=== PATIENT | male | born 1965 | race African-American/Black ===

== ENCOUNTER 2018-01-04 08:03 | Inpatient (IN) ==
[2018-01-04] MEDS ORDERED: DILTIAZEM 50 MG/10 ML VIAL IV STA (08:32)
[2018-01-04] MEDS ORDERED: DILTIAZEM 100 MG VIAL.ADD IV ONE (08:38)
[2018-01-04] MEDS: DILTIAZEM INJ 100 MG in SODIUM CHLORIDE 0.9% 100 ML IV SCH (08:52)
[2018-01-04 09:01] LABS: Basophils % 0.2 % (0.0-0.8); Hematocrit 31.2 VOL% (42.0-52.0); Hemoglobin 10.3 GM/DL (14.0-18.0); Immature Granulocytes % 0.8 %; Immature Granulocytes Absolute 0.08 #; Lymphocytes # 0.3 10*3/uL (1.4-4.0); Lymphocytes % 3.2 % (21.2-54.2); Mean Corpuscular Hemoglobin 33 PG (27-34); Mean Corpuscular Volume 101.3 FL (87-102); Mean Platelet Volume 11.4 FL (9.6-12.0); Monocytes # 0.5 10*3/uL (0.11-0.8); Monocytes % 4.8 % (1.7-12.7); Neutrophils # 9.4 10*3/uL (1.4-7.4); Red Blood Count 3.08 MC/CUMM (3.8-5.5); White Blood Count 10.4 T/CUMM (4-12)
[2018-01-04 09:06] LABS: Platelet Count 85 T/CUMM (130-400)
[2018-01-04 09:09] LABS: INR 1.2; PT Patient Result 12.3 SECS; Partial Thromboplastin Time 32.4 SECS (0-40)
[2018-01-04 09:25] LABS: Band Neutrophils 2 % (0-10); Hypochromasia 1+; Lymphocytes 7 % (20-55); Macrocytosis 1+; Metamyelocytes 1 %; Segmented Neutrophils 83 % (50-85); Total Cells Counted 100
[2018-01-04] MEDS ORDERED: SODIUM CHLORIDE 0.9% 1,000 ML IV SCH ×2 (09:30→15:00)
[2018-01-04 09:33] LABS: Albumin 2.9 G/DL (3.4-5.0); Bilirubin,Total 1.2 MG/DL (0.2-1.0); Calcium 8.7 MG/DL (8.5-10.1); Osmolality,Calculated 278.1 MOS/KG (273-304); Potassium 3.5 MMOL/L (3.5-5.1); Thyroid Stimulating Hormone 1.69 uIU/ml (0.358-3.74); Total Protein 8.1 G/DL (6.4-8.3)
[2018-01-04 09:34] LABS: Troponin I Only 0.309 NG/ML (0.00-0.045)
[2018-01-04] MEDS ORDERED: SODIUM CHLORIDE 0.9% 500 ML IV SCH (10:28)
[2018-01-04] MEDS ORDERED: ONDANSETRON 4 MG/2 ML VIAL IV PRN (11:19)
[2018-01-04] MEDS ORDERED: GLUCAGON 1 MG VIAL IM PRN (11:19)
[2018-01-04] MEDS ORDERED: SODIUM CHLORIDE 0.9% 1,000 ML IV ONE (11:24)
[2018-01-04] MEDS ORDERED: ENOXAPARIN 100 MG/ML SYRINGE SUBCUT SCH (14:39)
[2018-01-04] MEDS: INSULIN LISPRO 100 UNIT/ML SUBCUT SCH ×3 (14:51→21:04)
[2018-01-04] MEDS ORDERED: SODIUM CHLORIDE 0.9% 500 ML IV ONE (14:58)
[2018-01-04] MEDS: SODIUM CHLORIDE 0.9% 1,000 ML IV SCH ×2 (15:04→15:53)
[2018-01-04] MEDS: PANTOPRAZOLE 40 MG TABLET PO SCH (15:04)
[2018-01-04] MEDS: ENOXAPARIN 100 MG/ML SYRINGE SUBCUT SCH (15:52)
[2018-01-04] MEDS: METOPROLOL SUCCINATE XL 25 MG TABLET PO SCH (16:40)
[2018-01-04] MEDS: ACETAMINOPHEN 325 MG TABLET PO PRN (21:05)
[2018-01-04] MEDS: PHENYLEPHRINE INJ 80 MG in SODIUM CHLORIDE 0.9% 242 ML IV SCH (22:48)
[2018-01-04] MEDS: MORPHINE 2 MG/1 ML SYRINGE IV PRN (23:59)
[2018-01-05 05:02] LABS: Basophils % 0.2 % (0.0-0.8); Eosinophils # 0.1 10*3/uL (0.0-0.87); Eosinophils % 0.6 % (0.00-10.9); Hematocrit 31.9 VOL% (42.0-52.0); Hemoglobin 10.2 GM/DL (14.0-18.0); Immature Granulocytes % 1.3 %; Immature Granulocytes Absolute 0.12 #; Lymphocytes # 0.2 10*3/uL (1.4-4.0); Lymphocytes % 2.5 % (21.2-54.2); Mean Corpuscular Hemoglobin 33 PG (27-34); Mean Corpuscular Volume 103.9 FL (87-102); Mean Platelet Volume 11.8 FL (9.6-12.0); Monocytes # 0.3 10*3/uL (0.11-0.8); Monocytes % 3.1 % (1.7-12.7); Neutrophils # 8.5 10*3/uL (1.4-7.4); Neutrophils % 92.3 % (38.7-73.9); Platelet Count 74 T/CUMM (130-400); Red Blood Count 3.07 MC/CUMM (3.8-5.5); Red Cell Distribution Width 18.1 % (9.3-17.3); White Blood Count 9.3 T/CUMM (4-12)
[2018-01-05] MEDS: SODIUM CHLORIDE 0.9% 1,000 ML IV SCH (05:25)
[2018-01-05 05:34] LABS: Calcium 7.8 MG/DL (8.5-10.1); Osmolality,Calculated 287.7 MOS/KG (273-304); Potassium 3.8 MMOL/L (3.5-5.1); Risk Ratio 7.25; VLDL CHOLESTEROL 32.4 MG/DL
[2018-01-05 05:35] LABS: Band Neutrophils 6 % (0-10); Eosinophils 1 % (0-10); Lymphocytes 7 % (20-55); Macrocytosis 3+; Platelet Estimate Decreased; Segmented Neutrophils 79 % (50-85); Total Cells Counted 100
[2018-01-05] MEDS: INSULIN LISPRO 100 UNIT/ML SUBCUT SCH ×4 (07:15→21:37)
[2018-01-05] MEDS: ACETAMINOPHEN 325 MG TABLET PO PRN ×3 (07:28→23:39)
[2018-01-05] MEDS ORDERED: ASPIRIN EC 81 MG TABLET PO SCH (09:00)
[2018-01-05] MEDS ORDERED: AMIODARONE INJ 450 MG in DEXTROSE 5% 241 ML IV SCH (09:30)
[2018-01-05] MEDS ORDERED: DIGOXIN 0.5 MG/2 ML AMP IV ONE (09:59)
[2018-01-05] MEDS: METOPROLOL SUCCINATE XL 25 MG TABLET PO SCH (10:00)
[2018-01-05] MEDS: PANTOPRAZOLE 40 MG TABLET PO SCH (10:00)
[2018-01-05] MEDS ORDERED: VANCOMYCIN INJ 1,000 MG in SODIUM CHLORIDE 0.9% 250 ML IV ONE (10:00)
[2018-01-05] MEDS: DILTIAZEM INJ 100 MG in SODIUM CHLORIDE 0.9% 100 ML IV SCH (10:09)
[2018-01-05] MEDS: PHENYLEPHRINE INJ 80 MG in SODIUM CHLORIDE 0.9% 242 ML IV SCH ×2 (13:05→18:00)
[2018-01-05] MEDS: ENOXAPARIN 100 MG/ML SYRINGE SUBCUT SCH (13:58)
[2018-01-05] MEDS: AMIODARONE INJ 450 MG in DEXTROSE 5% 241 ML IV SCH (16:07)
[2018-01-05] MEDS ORDERED: VANCOMYCIN INJ 750 MG in SODIUM CHLORIDE 0.9% 250 ML IV PRN (16:12)
[2018-01-05] MEDS ORDERED: VANCOMYCIN INJ 1,750 MG in SODIUM CHLORIDE 0.9% 500 ML IV ONE (17:30)
[2018-01-05] MEDS ORDERED: ALBUMIN 25% 25 GM in PREMIX 1 EACH IV ONE (17:30)
[2018-01-05] MEDS: PHENYLEPHRINE INJ 160 MG in SODIUM CHLORIDE 0.9% 234 ML IV SCH (21:32)
[2018-01-06] MEDS: PHENYLEPHRINE INJ 160 MG in SODIUM CHLORIDE 0.9% 234 ML IV SCH ×3 (04:17→18:40)
[2018-01-06 05:45] LABS: Calcium 7.9 MG/DL (8.5-10.1); Osmolality,Calculated 277.2 MOS/KG (273-304); Potassium 4.7 MMOL/L (3.5-5.1)
[2018-01-06 05:50] LABS: Basophils # 0.1 10*3/uL (0.0-0.2); Basophils % 0.5 % (0.0-0.8); Eosinophils # 0.1 10*3/uL (0.0-0.87); Eosinophils % 1.1 % (0.00-10.9); Hematocrit 30.4 VOL% (42.0-52.0); Hemoglobin 10.1 GM/DL (14.0-18.0); Immature Granulocytes % 1.3 %; Immature Granulocytes Absolute 0.16 #; Lymphocytes # 0.4 10*3/uL (1.4-4.0); Lymphocytes % 3.2 % (21.2-54.2); Mean Corpuscular HGB Conc 33.2 GM/DL (32-36); Mean Corpuscular Hemoglobin 34 PG (27-34); Mean Platelet Volume 13.2 FL (9.6-12.0); Monocytes # 0.7 10*3/uL (0.11-0.8); Monocytes % 5.4 % (1.7-12.7); NRBC # 0.09 10*3/uL; Neutrophils # 10.9 10*3/uL (1.4-7.4); Neutrophils % 88.5 % (38.7-73.9); Platelet Count 90 T/CUMM (130-400); Red Blood Count 3.01 MC/CUMM (3.8-5.5); Red Cell Distribution Width 18.2 % (9.3-17.3); White Blood Count 12.3 T/CUMM (4-12)
[2018-01-06] MEDS: AMIODARONE INJ 450 MG in DEXTROSE 5% 241 ML IV SCH ×2 (06:22→21:11)
[2018-01-06 06:27] LABS: Band Neutrophils 2 % (0-10); Lymphocytes 5 % (20-55); Platelet Estimate Decreased; Segmented Neutrophils 89 % (50-85); Total Cells Counted 100
[2018-01-06] MEDS: PANTOPRAZOLE 40 MG TABLET PO SCH (08:50)
[2018-01-06] MEDS: DILTIAZEM INJ 100 MG in SODIUM CHLORIDE 0.9% 100 ML IV SCH (08:50)
[2018-01-06] MEDS: INSULIN LISPRO 100 UNIT/ML SUBCUT SCH ×4 (08:50→21:05)
[2018-01-06] MEDS: METOPROLOL SUCCINATE XL 25 MG TABLET PO SCH ×3 (08:53→21:05)
[2018-01-06] MEDS ORDERED: METOPROLOL SUCCINATE XL 25 MG TABLET PO SCH (10:00)
[2018-01-06] MEDS: ENOXAPARIN 100 MG/ML SYRINGE SUBCUT SCH (12:32)
[2018-01-06] MEDS: NOREPINEPHRINE 16 MG in SODIUM CHLORIDE 0.9% 234 ML IV SCH ×2 (18:42→19:17)
[2018-01-07] MEDS: PHENYLEPHRINE INJ 160 MG in SODIUM CHLORIDE 0.9% 234 ML IV SCH ×3 (02:35→20:35)
[2018-01-07 05:48] LABS: Basophils % 0.2 % (0.0-0.8); Eosinophils % 0.3 % (0.00-10.9); Hematocrit 33.1 VOL% (42.0-52.0); Hemoglobin 10.2 GM/DL (14.0-18.0); Immature Granulocytes % 3.9 %; Immature Granulocytes Absolute 0.47 #; Lymphocytes % 8.2 % (21.2-54.2); Mean Corpuscular HGB Conc 30.8 GM/DL (32-36); Mean Corpuscular Hemoglobin 33 PG (27-34); Mean Corpuscular Volume 106.1 FL (87-102); Mean Platelet Volume 13.1 FL (9.6-12.0); Monocytes # 1.1 10*3/uL (0.11-0.8); Monocytes % 8.6 % (1.7-12.7); Neutrophils # 9.6 10*3/uL (1.4-7.4); Neutrophils % 78.8 % (38.7-73.9); Platelet Count 69 T/CUMM (130-400); Red Blood Count 3.12 MC/CUMM (3.8-5.5); Red Cell Distribution Width 18.6 % (9.3-17.3); White Blood Count 12.2 T/CUMM (4-12)
[2018-01-07 06:16] LABS: Anisocytosis 1+; Band Neutrophils 4 % (0-10); Burr Cells Few; Lymphocytes 11 % (20-55); Macrocytosis 3+; Segmented Neutrophils 79 % (50-85); Total Cells Counted 100
[2018-01-07 06:17] LABS: Platelet Estimate Decreased
[2018-01-07 08:26] LABS: Calcium 8.8 MG/DL (8.5-10.1)
[2018-01-07 08:28] LABS: Osmolality,Calculated 284.4 MOS/KG (273-304); Potassium 4.9 MMOL/L (3.5-5.1)
[2018-01-07] MEDS: DEXTROSE 50% 25 GM/50 ML VIAL IV PRN ×4 (08:30→20:50)
[2018-01-07] MEDS: INSULIN LISPRO 100 UNIT/ML SUBCUT SCH ×4 (10:53→21:58)
[2018-01-07] MEDS: DILTIAZEM INJ 100 MG in SODIUM CHLORIDE 0.9% 100 ML IV SCH (11:36)
[2018-01-07] MEDS: PANTOPRAZOLE 40 MG TABLET PO SCH (11:36)
[2018-01-07] MEDS: METOPROLOL SUCCINATE XL 25 MG TABLET PO SCH ×2 (11:36→20:24)
[2018-01-07] MEDS: AMIODARONE INJ 450 MG in DEXTROSE 5% 241 ML IV SCH (14:00)
[2018-01-07] MEDS: ENOXAPARIN 100 MG/ML SYRINGE SUBCUT SCH (14:01)
[2018-01-07] MEDS: DEXTROSE 5% 500 ML IV SCH (16:30)
[2018-01-07] MEDS: NOREPINEPHRINE 16 MG in SODIUM CHLORIDE 0.9% 234 ML IV SCH (17:47)
[2018-01-07] MEDS: MORPHINE 2 MG/1 ML SYRINGE IV PRN (20:24)
[2018-01-07 22:05] LABS: ABG Base Excess -12.6 MMOL/L (-2.5-2.5); ABG HCO3 14.5 MMOL/L (20-26); ABG Oxygen Saturation 91.7 % (95-100); ABG PO2 76.4 MM HG (80-95); ABG TCO2 12.5 MMOL/L (23-27)
[2018-01-07] MEDS: LINEZOLID INJ 600 MG in PREMIX 1 EACH IV SCH (22:59)
[2018-01-08] MEDS ORDERED: ZIPRASIDONE 20 MG/1 ML VIAL IM ONE (05:00)
[2018-01-08] MEDS: AMIODARONE INJ 450 MG in DEXTROSE 5% 241 ML IV SCH ×2 (06:09→21:55)
[2018-01-08 06:44] LABS: Basophils % 0.2 % (0.0-0.8); Eosinophils % 0.2 % (0.00-10.9); Hematocrit 27.4 VOL% (42.0-52.0); Hemoglobin 8.9 GM/DL (14.0-18.0); Immature Granulocytes % 1.8 %; Lymphocytes # 0.8 10*3/uL (1.4-4.0); Lymphocytes % 6.8 % (21.2-54.2); Mean Corpuscular HGB Conc 32.5 GM/DL (32-36); Mean Corpuscular Hemoglobin 33 PG (27-34); Mean Corpuscular Volume 101.5 FL (87-102); Mean Platelet Volume 14.1 FL (9.6-12.0); Monocytes # 0.8 10*3/uL (0.11-0.8); Monocytes % 7.4 % (1.7-12.7); NRBC # 0.04 10*3/uL; Neutrophils # 9.3 10*3/uL (1.4-7.4); Neutrophils % 83.6 % (38.7-73.9); Platelet Count 49 T/CUMM (130-400); Red Cell Distribution Width 18.3 % (9.3-17.3); White Blood Count 11.1 T/CUMM (4-12)
[2018-01-08] MEDS: DEXTROSE 5% 500 ML IV SCH (06:55)
[2018-01-08 07:08] LABS: Band Neutrophils 5 % (0-10); Hypochromasia 1+; Lymphocytes 12 % (20-55); Segmented Neutrophils 79 % (50-85); Total Cells Counted 100
[2018-01-08 07:09] LABS: Macrocytosis 2+; Platelet Estimate Decreased
[2018-01-08 07:18] LABS: Calcium 8.2 MG/DL (8.5-10.1); Osmolality,Calculated 282.5 MOS/KG (273-304); Potassium 5.4 MMOL/L (3.5-5.1)
[2018-01-08] MEDS: INSULIN LISPRO 100 UNIT/ML SUBCUT SCH ×4 (08:38→19:48)
[2018-01-08] MEDS: DILTIAZEM INJ 100 MG in SODIUM CHLORIDE 0.9% 100 ML IV SCH (08:39)
[2018-01-08] MEDS: PANTOPRAZOLE 40 MG TABLET PO SCH (09:29)
[2018-01-08] MEDS: METOPROLOL SUCCINATE XL 25 MG TABLET PO SCH (09:36)
[2018-01-08] MEDS: DEXTROSE 10% 500 ML IV SCH (11:30)
[2018-01-08] MEDS ORDERED: LIDOCAINE 1%/EPI INJ 20 ML VIAL ONE (14:06)
[2018-01-08] MEDS ORDERED: TISSUE ADHESIVE 1 EACH APPLICATOR TOP ONE (14:06)
[2018-01-08] MEDS ORDERED: HEPARIN 5,000 UNIT/1 ML VIAL ONE (14:06)
[2018-01-08] MEDS ORDERED: BUPIVACAINE 0.25% 50 ML VIAL ONE (14:07)
[2018-01-08] MEDS ORDERED: PROPOFOL 200 MG/20 ML VIAL IV ONE (15:49)
[2018-01-08] MEDS ORDERED: SODIUM CHLORIDE 0.9% 1,000 ML IV ONE (15:50)
[2018-01-08] MEDS ORDERED: ETOMIDATE 40 MG/20 ML VIAL IV ONE (15:50)
[2018-01-08] MEDS ORDERED: KETAMINE 500 MG/10 ML VIAL ONE (15:50)
[2018-01-08] MEDS ORDERED: PHENYLEPHRINE 1 MG/10 ML SYRINGE IV ONE (16:53)
[2018-01-08] MEDS ORDERED: ALBUTEROL INHALER 8 GM INH ONE (16:55)
[2018-01-08] MEDS: NOREPINEPHRINE 16 MG in SODIUM CHLORIDE 0.9% 234 ML IV SCH ×2 (17:21→23:16)
[2018-01-08] MEDS ORDERED: VECURONIUM 10 MG VIAL IV ONE ×2 (19:30→20:01)
[2018-01-08] MEDS ORDERED: ETOMIDATE 20 MG/10 ML VIAL IV ONE ×2 (19:31→19:59)
[2018-01-08] MEDS ORDERED: PROPOFOL 1,000 MG/100 ML BOTTLE IV ONE (19:45)
[2018-01-08] MEDS: LINEZOLID INJ 600 MG in PREMIX 1 EACH IV SCH (19:47)
[2018-01-08] MEDS ORDERED: ALBUTEROL/IPRATROPIUM 3 ML NEB RESP TX PRN (19:59)
[2018-01-08] MEDS ORDERED: fentaNYL 100 MCG/2 ML VIAL IV PRN (19:59)
[2018-01-08] MEDS: PROPOFOL 1,000 MG/100 ML BOTTLE IV SCH (20:00)
[2018-01-08 20:37] LABS: ABG Base Excess -9.5 MMOL/L (-2.5-2.5); ABG HCO3 16.8 MMOL/L (20-26); ABG Oxygen Saturation 99.2 % (95-100); ABG PCO2 53.7 MM HG (35-48); ABG TCO2 18.2 MMOL/L (23-27)
[2018-01-08 20:39] LABS: ABG PH 7.166 (7.35-7.45)
[2018-01-08] MEDS ORDERED: SODIUM BICARBONATE 50 MEQ/50 ML SYRINGE IV ONE (20:45)
[2018-01-08 21:00] LABS: Basophils % 0.3 % (0.0-0.8); Eosinophils # 0.1 10*3/uL (0.0-0.87); Eosinophils % 0.4 % (0.00-10.9); Hematocrit 31.4 VOL% (42.0-52.0); Hemoglobin 10.4 GM/DL (14.0-18.0); Immature Granulocytes % 1.9 %; Immature Granulocytes Absolute 0.23 #; Mean Corpuscular HGB Conc 33.1 GM/DL (32-36); Mean Corpuscular Hemoglobin 33 PG (27-34); Mean Platelet Volume 13.8 FL (9.6-12.0); Monocytes # 0.5 10*3/uL (0.11-0.8); Monocytes % 4.2 % (1.7-12.7); NRBC # 0.02 10*3/uL; Neutrophils # 10.3 10*3/uL (1.4-7.4); Neutrophils % 85.2 % (38.7-73.9); Platelet Count 57 T/CUMM (130-400); Red Blood Count 3.14 MC/CUMM (3.8-5.5); Red Cell Distribution Width 17.9 % (9.3-17.3)
[2018-01-08] MEDS: HYDROCORTISONE 100 MG VIAL IV SCH (21:18)
[2018-01-08 21:20] LABS: Lactic Acid 3.5 MMOL/L (0.4-2.0)
[2018-01-08 21:30] LABS: Alanine Aminotransferase 2182 U/L (16-61); Albumin 2.6 G/DL (3.4-5.0); Alkaline Phosphatase 162 U/L (45-117); Aspartate Amino Transferase 4923 U/L (0-37); Blood Urea Nitrogen 95 MG/DL (7-18); Calcium 8.4 MG/DL (8.5-10.1); Glucose 98 MG/DL (74-106); Osmolality,Calculated 285.1 MOS/KG (273-304); Potassium 4.8 MMOL/L (3.5-5.1); Sodium 128 MMOL/L (136-145); Total Protein 6.7 G/DL (6.4-8.3)
[2018-01-08] MEDS: PHENYLEPHRINE INJ 160 MG in SODIUM CHLORIDE 0.9% 234 ML IV SCH (21:55)
[2018-01-08 22:26] LABS: Band Neutrophils 12 % (0-10); Burr Cells Few; Eosinophils 2 % (0-10); Lymphocytes 24 % (20-55); Macrocytosis 3+; Platelet Estimate Decreased; Segmented Neutrophils 60 % (50-85); Total Cells Counted 100
[2018-01-08] MEDS: SODIUM BICARB INJ 50 MEQ in SODIUM CHLORIDE 0.45% 1,000 ML IV SCH (22:26)
[2018-01-09] MEDS: ALBUTEROL/IPRATROPIUM 3 ML NEB RESP TX SCH ×4 (00:16→19:49)
[2018-01-09] MEDS: INSULIN LISPRO 100 UNIT/ML SUBCUT SCH ×4 (00:21→17:14)
[2018-01-09] MEDS: HYDROCORTISONE 100 MG VIAL IV SCH ×4 (03:03→21:26)
[2018-01-09 04:30] LABS: ABG Base Excess -9.2 MMOL/L (-2.5-2.5); ABG HCO3 17.1 MMOL/L (20-26); ABG Oxygen Saturation 96.4 % (95-100); ABG PCO2 50.1 MM HG (35-48); ABG TCO2 17.8 MMOL/L (23-27)
[2018-01-09 04:32] LABS: Basophils # 0.1 10*3/uL (0.0-0.2); Basophils % 0.4 % (0.0-0.8); Hematocrit 33.1 VOL% (42.0-52.0); Hemoglobin 10.9 GM/DL (14.0-18.0); Immature Granulocytes % 2.4 %; Immature Granulocytes Absolute 0.43 #; Lymphocytes # 0.6 10*3/uL (1.4-4.0); Lymphocytes % 3.2 % (21.2-54.2); Mean Corpuscular HGB Conc 32.9 GM/DL (32-36); Mean Corpuscular Hemoglobin 33 PG (27-34); Mean Corpuscular Volume 99.1 FL (87-102); Mean Platelet Volume 13.6 FL (9.6-12.0); Monocytes # 0.6 10*3/uL (0.11-0.8); Monocytes % 3.2 % (1.7-12.7); NRBC # 0.04 10*3/uL; Neutrophils % 90.8 % (38.7-73.9); Platelet Count 71 T/CUMM (130-400); Red Blood Count 3.34 MC/CUMM (3.8-5.5); Red Cell Distribution Width 18.3 % (9.3-17.3); White Blood Count 17.6 T/CUMM (4-12)
[2018-01-09 04:40] LABS: ABG PH 7.192 (7.35-7.45)
[2018-01-09] MEDS ORDERED: SODIUM BICARBONATE 50 MEQ/50 ML SYRINGE IV ONE ×2 (04:47→04:50)
[2018-01-09] MEDS: DEXTROSE 10% 500 ML IV SCH ×2 (04:53→21:35)
[2018-01-09 05:02] LABS: Calcium 8.2 MG/DL (8.5-10.1); Osmolality,Calculated 289.1 MOS/KG (273-304); Potassium 5.1 MMOL/L (3.5-5.1)
[2018-01-09 05:05] LABS: Band Neutrophils 4 % (0-10); Burr Cells Slight; Giant Platelets Few; Hypochromasia 1+; Lymphocytes 2 % (20-55); Ovalocytes Slight; Platelet Estimate Decreased; Segmented Neutrophils 89 % (50-85); Total Cells Counted 100
[2018-01-09 05:06] LABS: Macrocytosis Slight
[2018-01-09 05:17] LABS: Prealbumin 6.6 MG/DL (20-40)
[2018-01-09] MEDS: PHENYLEPHRINE INJ 160 MG in SODIUM CHLORIDE 0.9% 234 ML IV SCH ×3 (05:44→21:20)
[2018-01-09] MEDS ORDERED: SODIUM CHLORIDE 0.9% 500 ML IV ONE (08:01)
[2018-01-09] MEDS: VASOPRESSIN 100 UNITS in SODIUM CHLORIDE 0.9% 95 ML IV SCH (09:14)
[2018-01-09] MEDS: LANSOPRAZOLE ODT 30 MG TABLET NG SCH (09:31)
[2018-01-09] MEDS: PROPOFOL 1,000 MG/100 ML BOTTLE IV SCH ×3 (09:43→23:12)
[2018-01-09] MEDS: SODIUM BICARB INJ 50 MEQ in SODIUM CHLORIDE 0.45% 1,000 ML IV SCH (12:27)
[2018-01-09] MEDS ORDERED: HEPARIN 10,000 UNIT/10 ML VIAL IV PRN (12:30)
[2018-01-09] MEDS: AMIODARONE INJ 450 MG in DEXTROSE 5% 241 ML IV SCH (13:48)
[2018-01-09] MEDS ORDERED: VANCOMYCIN INJ 750 MG in SODIUM CHLORIDE 0.9% 250 ML IV ONE (14:00)
[2018-01-09] MEDS: PANTOPRAZOLE 40 MG TABLET PO SCH (14:39)
[2018-01-09] MEDS ORDERED: HEPARIN LOCK FLUSH 500 UNIT/5 ML SYRINGE IV ONE (15:03)
[2018-01-09] MEDS: NOREPINEPHRINE 16 MG in SODIUM CHLORIDE 0.9% 234 ML IV SCH ×2 (15:17→18:22)
[2018-01-10] MEDS: PHENYLEPHRINE INJ 160 MG in SODIUM CHLORIDE 0.9% 234 ML IV SCH ×3 (00:43→21:57)
[2018-01-10] MEDS: INSULIN LISPRO 100 UNIT/ML SUBCUT SCH ×4 (01:07→18:38)
[2018-01-10] MEDS: ALBUTEROL/IPRATROPIUM 3 ML NEB RESP TX SCH ×4 (01:11→21:13)
[2018-01-10] MEDS: HYDROCORTISONE 100 MG VIAL IV SCH ×4 (02:33→20:51)
[2018-01-10 04:01] LABS: ABG Base Excess -5.9 MMOL/L (-2.5-2.5); ABG HCO3 19.6 MMOL/L (20-26); ABG PCO2 54.1 MM HG (35-48); ABG PH 7.223 (7.35-7.45); ABG TCO2 20.6 MMOL/L (23-27)
[2018-01-10 04:15] LABS: Basophils # 0.1 10*3/uL (0.0-0.2); Basophils % 0.5 % (0.0-0.8); Hematocrit 30.9 VOL% (42.0-52.0); Hemoglobin 10.8 GM/DL (14.0-18.0); Immature Granulocytes % 3.7 %; Immature Granulocytes Absolute 0.65 #; Lymphocytes # 0.7 10*3/uL (1.4-4.0); Lymphocytes % 4.1 % (21.2-54.2); Mean Corpuscular Hemoglobin 33 PG (27-34); Mean Corpuscular Volume 94.2 FL (87-102); Mean Platelet Volume 13.2 FL (9.6-12.0); Monocytes # 0.8 10*3/uL (0.11-0.8); Monocytes % 4.4 % (1.7-12.7); NRBC # 0.16 10*3/uL; Neutrophils # 15.2 10*3/uL (1.4-7.4); Neutrophils % 87.3 % (38.7-73.9); Platelet Count 84 T/CUMM (130-400); Red Blood Count 3.28 MC/CUMM (3.8-5.5); Red Cell Distribution Width 18.3 % (9.3-17.3); White Blood Count 17.4 T/CUMM (4-12)
[2018-01-10 04:30] LABS: Calcium 7.9 MG/DL (8.5-10.1); Osmolality,Calculated 289.9 MOS/KG (273-304); Potassium 5.1 MMOL/L (3.5-5.1)
[2018-01-10 04:58] LABS: Band Neutrophils 2 % (0-10); Lymphocytes 6 % (20-55); Segmented Neutrophils 88 % (50-85); Total Cells Counted 100
[2018-01-10 04:59] LABS: Platelet Estimate Decreased; Polychromasia Few; Target Cells Few; Tear Drop Cells Slight
[2018-01-10 05:00] LABS: Burr Cells Slight
[2018-01-10] MEDS: NOREPINEPHRINE 16 MG in SODIUM CHLORIDE 0.9% 234 ML IV SCH ×3 (05:23→18:13)
[2018-01-10] MEDS: SODIUM BICARB INJ 50 MEQ in SODIUM CHLORIDE 0.45% 1,000 ML IV SCH (05:23)
[2018-01-10] MEDS: VASOPRESSIN 100 UNITS in SODIUM CHLORIDE 0.9% 95 ML IV SCH (05:23)
[2018-01-10] MEDS: PROPOFOL 1,000 MG/100 ML BOTTLE IV SCH ×5 (05:24→23:52)
[2018-01-10] MEDS: AMIODARONE INJ 450 MG in DEXTROSE 5% 241 ML IV SCH (05:24)
[2018-01-10 09:15] LABS: Albumin 2.4 G/DL (3.4-5.0); Bilirubin,Direct 2.53 MG/DL (0.0-0.20); Bilirubin,Total 3.5 MG/DL (0.2-1.0); Total Protein 6.8 G/DL (6.4-8.3)
[2018-01-10] MEDS: SODIUM BICARB INJ 150 MEQ in DEXTROSE 5% 850 ML IV SCH (11:46)
[2018-01-10] MEDS: LANSOPRAZOLE ODT 30 MG TABLET NG SCH (12:01)
[2018-01-10] MEDS: PANTOPRAZOLE 40 MG VIAL IV SCH (14:30)
[2018-01-10] MEDS: SODIUM HYPOCHLORITE 0.25% IRRIG 473 ML BOTTLE TOP SCH (14:37)
[2018-01-10] MEDS: AMINO ACIDS IV SCH (16:56)
[2018-01-10] MEDS: LYTE IV SCH (16:56)
[2018-01-10] MEDS: MULTIVITAMIN IV SCH (16:56)
[2018-01-10] MEDS: DEXT IV SCH (16:56)
[2018-01-10] MEDS ORDERED: DEXTROSE 10% 1,000 ML IV PRN (17:00)
[2018-01-11] MEDS ORDERED: AMIODARONE INJ 150 MG in DEXTROSE 5% 100 ML IV ONE (00:54)
[2018-01-11] MEDS: ALBUTEROL/IPRATROPIUM 3 ML NEB RESP TX SCH ×5 (01:00→19:45)
[2018-01-11] MEDS: PHENYLEPHRINE INJ 160 MG in SODIUM CHLORIDE 0.9% 234 ML IV SCH ×2 (01:16→09:02)
[2018-01-11 01:22] LABS: Basophils # 0.1 10*3/uL (0.0-0.2); Basophils % 0.4 % (0.0-0.8); Hematocrit 28.9 VOL% (42.0-52.0); Immature Granulocytes % 5.4 %; Lymphocytes # 1.1 10*3/uL (1.4-4.0); Lymphocytes % 5.7 % (21.2-54.2); Mean Corpuscular HGB Conc 34.6 GM/DL (32-36); Mean Corpuscular Hemoglobin 33 PG (27-34); Mean Corpuscular Volume 94.1 FL (87-102); Mean Platelet Volume 11.9 FL (9.6-12.0); Monocytes # 0.8 10*3/uL (0.11-0.8); Monocytes % 4.4 % (1.7-12.7); NRBC # 0.41 10*3/uL; Neutrophils # 15.5 10*3/uL (1.4-7.4); Neutrophils % 84.1 % (38.7-73.9); Platelet Count 102 T/CUMM (130-400); Red Blood Count 3.07 MC/CUMM (3.8-5.5); Red Cell Distribution Width 18.2 % (9.3-17.3); White Blood Count 18.4 T/CUMM (4-12)
[2018-01-11 01:23] LABS: ABG Base Excess -4.9 MMOL/L (-2.5-2.5); ABG HCO3 20.2 MMOL/L (20-26); ABG Oxygen Saturation 91.3 % (95-100); ABG PCO2 48.7 MM HG (35-48); ABG PH 7.266 (7.35-7.45); ABG PO2 69.7 MM HG (80-95); ABG TCO2 20.6 MMOL/L (23-27)
[2018-01-11 01:55] LABS: Alanine Aminotransferase 1093 U/L (16-61); Albumin 2.1 G/DL (3.4-5.0); Alkaline Phosphatase 160 U/L (45-117); Aspartate Amino Transferase 662 U/L (0-37); Blood Urea Nitrogen 107 MG/DL (7-18); Calcium 8.9 MG/DL (8.5-10.1); Glucose 174 MG/DL (74-106); Osmolality,Calculated 297.8 MOS/KG (273-304); Potassium 4.9 MMOL/L (3.5-5.1); Sodium 130 MMOL/L (136-145); Total Protein 6.5 G/DL (6.4-8.3); Troponin I Only 0.032 NG/ML (0.00-0.045)
[2018-01-11] MEDS: INSULIN LISPRO 100 UNIT/ML SUBCUT SCH ×4 (01:56→18:37)
[2018-01-11 01:59] LABS: Lactic Acid 2.2 MMOL/L (0.4-2.0)
[2018-01-11 02:05] LABS: Atypical Lymphocytes Few; Band Neutrophils 6 % (0-10); Lymphocytes 9 % (20-55); Macrocytosis 2+; Nucleated Red Blood Cells 3 (0-5); Platelet Estimate Decreased; Segmented Neutrophils 79 % (50-85); Total Cells Counted 100
[2018-01-11] MEDS: AMIODARONE INJ 450 MG in DEXTROSE 5% 241 ML IV SCH ×2 (02:15→18:31)
[2018-01-11] MEDS: HYDROCORTISONE 100 MG VIAL IV SCH ×4 (02:48→21:56)
[2018-01-11] MEDS: NOREPINEPHRINE 16 MG in SODIUM CHLORIDE 0.9% 234 ML IV SCH ×3 (05:10→18:38)
[2018-01-11 05:25] LABS: ABG Base Excess -3.2 MMOL/L (-2.5-2.5); ABG Oxygen Saturation 99.5 % (95-100); ABG PCO2 53.6 MM HG (35-48); ABG PH 7.269 (7.35-7.45); ABG PO2 375.8 MM HG (80-95); ABG TCO2 25.7 MMOL/L (23-27)
[2018-01-11] MEDS: VASOPRESSIN 100 UNITS in SODIUM CHLORIDE 0.9% 95 ML IV SCH (05:26)
[2018-01-11] MEDS: SODIUM BICARB INJ 150 MEQ in DEXTROSE 5% 850 ML IV SCH ×2 (06:07→09:02)
[2018-01-11 06:53] LABS: Calcium 8.1 MG/DL (8.5-10.1); Osmolality,Calculated 298.9 MOS/KG (273-304); Potassium 4.8 MMOL/L (3.5-5.1)
[2018-01-11 06:58] LABS: Basophils # 0.1 10*3/uL (0.0-0.2); Basophils % 0.3 % (0.0-0.8); Immature Granulocytes % 4.7 %; Immature Granulocytes Absolute 0.81 #; Lymphocytes # 0.7 10*3/uL (1.4-4.0); Lymphocytes % 4.3 % (21.2-54.2); Mean Corpuscular HGB Conc 35.7 GM/DL (32-36); Mean Corpuscular Hemoglobin 33 PG (27-34); Mean Corpuscular Volume 93.6 FL (87-102); Mean Platelet Volume 12.7 FL (9.6-12.0); Monocytes # 0.9 10*3/uL (0.11-0.8); Monocytes % 4.9 % (1.7-12.7); NRBC # 0.44 10*3/uL; Neutrophils # 14.8 10*3/uL (1.4-7.4); Neutrophils % 85.8 % (38.7-73.9); Platelet Count 102 T/CUMM (130-400); Red Blood Count 2.99 MC/CUMM (3.8-5.5); Red Cell Distribution Width 18.1 % (9.3-17.3); White Blood Count 17.2 T/CUMM (4-12)
[2018-01-11 07:17] LABS: Band Neutrophils 7 % (0-10); Hypochromasia 1+; Lymphocytes 5 % (20-55); Nucleated Red Blood Cells 3 (0-5); Segmented Neutrophils 82 % (50-85); Total Cells Counted 100
[2018-01-11 07:18] LABS: Macrocytosis 2+; Ovalocytes Slight; Target Cells Slight
[2018-01-11 07:19] LABS: Platelet Estimate Decreased; Polychromasia Slight
[2018-01-11] MEDS: PROPOFOL 1,000 MG/100 ML BOTTLE IV SCH ×2 (08:02→23:16)
[2018-01-11] MEDS: PANTOPRAZOLE 40 MG VIAL IV SCH (09:10)
[2018-01-11] MEDS: SODIUM HYPOCHLORITE 0.25% IRRIG 473 ML BOTTLE TOP SCH (10:46)
[2018-01-11 14:01] LABS: ABG Base Excess -0.4 MMOL/L (-2.5-2.5); ABG HCO3 25.9 MMOL/L (20-26); ABG PCO2 49.7 MM HG (35-48); ABG PH 7.334 (7.35-7.45); ABG PO2 173.9 MM HG (80-95); ABG TCO2 27.4 MMOL/L (23-27)
[2018-01-11] MEDS: MULTIVITAMIN IV SCH (17:01)
[2018-01-11] MEDS: AMINO ACIDS IV SCH (17:01)
[2018-01-11] MEDS: DEXT IV SCH (17:01)
[2018-01-11] MEDS: LYTE IV SCH (17:01)
[2018-01-11] MEDS ORDERED: VANCOMYCIN INJ 750 MG in SODIUM CHLORIDE 0.9% 250 ML IV ONE (18:00)
[2018-01-12] MEDS: PHENYLEPHRINE INJ 160 MG in SODIUM CHLORIDE 0.9% 234 ML IV SCH ×2 (00:10→00:14)
[2018-01-12] MEDS: PROPOFOL 1,000 MG/100 ML BOTTLE IV SCH ×4 (00:11→22:23)
[2018-01-12] MEDS: ALBUTEROL/IPRATROPIUM 3 ML NEB RESP TX SCH ×4 (00:14→19:37)
[2018-01-12] MEDS: INSULIN LISPRO 100 UNIT/ML SUBCUT SCH ×4 (00:33→17:37)
[2018-01-12] MEDS: NOREPINEPHRINE 16 MG in SODIUM CHLORIDE 0.9% 234 ML IV SCH ×3 (03:56→17:44)
[2018-01-12] MEDS: HYDROCORTISONE 100 MG VIAL IV SCH ×4 (04:21→21:26)
[2018-01-12] MEDS: SODIUM BICARB INJ 150 MEQ in DEXTROSE 5% 850 ML IV SCH ×2 (04:22→05:03)
[2018-01-12 04:44] LABS: ABG Base Excess -0.5 MMOL/L (-2.5-2.5); ABG Oxygen Saturation 99.3 % (95-100); ABG PCO2 51.2 MM HG (35-48); ABG PH 7.324 (7.35-7.45); ABG TCO2 27.6 MMOL/L (23-27)
[2018-01-12 05:01] LABS: Basophils # 0.1 10*3/uL (0.0-0.2); Basophils % 0.3 % (0.0-0.8); Hematocrit 27.1 VOL% (42.0-52.0); Hemoglobin 9.7 GM/DL (14.0-18.0); Immature Granulocytes % 4.5 %; Immature Granulocytes Absolute 0.84 #; Lymphocytes # 0.6 10*3/uL (1.4-4.0); Lymphocytes % 3.2 % (21.2-54.2); Mean Corpuscular HGB Conc 35.8 GM/DL (32-36); Mean Corpuscular Hemoglobin 33 PG (27-34); Mean Corpuscular Volume 91.9 FL (87-102); Mean Platelet Volume 10.6 FL (9.6-12.0); Monocytes % 5.2 % (1.7-12.7); NRBC # 0.19 10*3/uL; Neutrophils # 16.2 10*3/uL (1.4-7.4); Neutrophils % 86.8 % (38.7-73.9); Red Blood Count 2.95 MC/CUMM (3.8-5.5); Red Cell Distribution Width 18.3 % (9.3-17.3); White Blood Count 18.6 T/CUMM (4-12)
[2018-01-12 05:10] LABS: Platelet Count 85 T/CUMM (130-400)
[2018-01-12 05:33] LABS: Band Neutrophils 2 % (0-10); Burr Cells Slight; Giant Platelets Few; Hypochromasia 1+; Lymphocytes 3 % (20-55); Nucleated Red Blood Cells 1 (0-5); Ovalocytes Slight; Platelet Estimate Decreased; Segmented Neutrophils 91 % (50-85); Total Cells Counted 100
[2018-01-12 05:34] LABS: Macrocytosis 1+
[2018-01-12] MEDS: VASOPRESSIN 100 UNITS in SODIUM CHLORIDE 0.9% 95 ML IV SCH (06:15)
[2018-01-12 06:49] LABS: Calcium 7.6 MG/DL (8.5-10.1); Osmolality,Calculated 294.5 MOS/KG (273-304)
[2018-01-12] MEDS: SODIUM HYPOCHLORITE 0.25% IRRIG 473 ML BOTTLE TOP SCH (07:30)
[2018-01-12] MEDS: AMIODARONE INJ 450 MG in DEXTROSE 5% 241 ML IV SCH (08:15)
[2018-01-12] MEDS: PANTOPRAZOLE 40 MG VIAL IV SCH (08:42)
[2018-01-12 09:12] LABS: ABG Base Excess -0.5 MMOL/L (-2.5-2.5); ABG HCO3 24.1 MMOL/L (20-26); ABG Oxygen Saturation 99.3 % (95-100); ABG PCO2 45.5 MM HG (35-48); ABG PH 7.353 (7.35-7.45); ABG TCO2 23.2 MMOL/L (23-27)
[2018-01-12] MEDS: AMINO ACIDS IV SCH (17:39)
[2018-01-12] MEDS: MULTIVITAMIN IV SCH (17:39)
[2018-01-12] MEDS: DEXT IV SCH (17:39)
[2018-01-12] MEDS: LYTE IV SCH (17:39)
[2018-01-13] MEDS: PHENYLEPHRINE INJ 160 MG in SODIUM CHLORIDE 0.9% 234 ML IV SCH ×2 (00:45→22:59)
[2018-01-13] MEDS: NOREPINEPHRINE 16 MG in SODIUM CHLORIDE 0.9% 234 ML IV SCH ×4 (00:46→22:50)
[2018-01-13] MEDS: AMIODARONE INJ 450 MG in DEXTROSE 5% 241 ML IV SCH ×4 (01:08→21:53)
[2018-01-13] MEDS: ALBUTEROL/IPRATROPIUM 3 ML NEB RESP TX SCH ×4 (01:11→20:02)
[2018-01-13] MEDS: INSULIN LISPRO 100 UNIT/ML SUBCUT SCH ×5 (01:24→23:57)
[2018-01-13] MEDS: PROPOFOL 1,000 MG/100 ML BOTTLE IV SCH ×4 (01:24→23:58)
[2018-01-13] MEDS: HYDROCORTISONE 100 MG VIAL IV SCH ×4 (03:50→21:50)
[2018-01-13 03:56] LABS: Basophils # 0.1 10*3/uL (0.0-0.2); Basophils % 0.3 % (0.0-0.8); Hematocrit 26.8 VOL% (42.0-52.0); Hemoglobin 9.6 GM/DL (14.0-18.0); Immature Granulocytes % 4.9 %; Immature Granulocytes Absolute 0.97 #; Lymphocytes # 0.6 10*3/uL (1.4-4.0); Lymphocytes % 2.9 % (21.2-54.2); Mean Corpuscular HGB Conc 35.8 GM/DL (32-36); Mean Corpuscular Hemoglobin 32 PG (27-34); Mean Corpuscular Volume 90.2 FL (87-102); Mean Platelet Volume 11.8 FL (9.6-12.0); Monocytes # 0.9 10*3/uL (0.11-0.8); Monocytes % 4.5 % (1.7-12.7); NRBC # 0.22 10*3/uL; Neutrophils # 17.3 10*3/uL (1.4-7.4); Neutrophils % 87.4 % (38.7-73.9); Platelet Count 104 T/CUMM (130-400); Red Blood Count 2.97 MC/CUMM (3.8-5.5); Red Cell Distribution Width 18.6 % (9.3-17.3); White Blood Count 19.8 T/CUMM (4-12)
[2018-01-13 03:58] LABS: ABG Base Excess -0.6 MMOL/L (-2.5-2.5); ABG HCO3 24.6 MMOL/L (20-26); ABG Oxygen Saturation 93.8 % (95-100); ABG PCO2 42.4 MM HG (35-48); ABG PH 7.381 (7.35-7.45); ABG PO2 75.4 MM HG (80-95); ABG TCO2 25.9 MMOL/L (23-27)
[2018-01-13 04:28] LABS: Band Neutrophils 5 % (0-10); Lymphocytes 5 % (20-55); Nucleated Red Blood Cells 1 (0-5); Segmented Neutrophils 88 % (50-85); Total Cells Counted 100
[2018-01-13 04:29] LABS: Anisocytosis 2+; Poikilocytosis 2+; Target Cells 1+
[2018-01-13 04:30] LABS: Acanthocytes 1+; Ovalocytes 1+; Polychromasia 1+
[2018-01-13 04:34] LABS: Albumin 1.9 G/DL (3.4-5.0); Bilirubin,Total 4.3 MG/DL (0.2-1.0); Calcium 7.6 MG/DL (8.5-10.1); Osmolality,Calculated 292.1 MOS/KG (273-304); Potassium 5.4 MMOL/L (3.5-5.1); Total Protein 6.5 G/DL (6.4-8.3)
[2018-01-13 05:59] LABS: ABG Base Excess -1.2 MMOL/L (-2.5-2.5); ABG HCO3 23.4 MMOL/L (20-26); ABG Oxygen Saturation 96.8 % (95-100); ABG PCO2 35.1 MM HG (35-48); ABG PH 7.421 (7.35-7.45); ABG PO2 87.2 MM HG (80-95); ABG TCO2 20.9 MMOL/L (23-27)
[2018-01-13] MEDS: VASOPRESSIN 100 UNITS in SODIUM CHLORIDE 0.9% 95 ML IV SCH (06:01)
[2018-01-13] MEDS: SODIUM HYPOCHLORITE 0.25% IRRIG 473 ML BOTTLE TOP SCH (09:14)
[2018-01-13] MEDS: PANTOPRAZOLE 40 MG VIAL IV SCH (09:15)
[2018-01-13] MEDS ORDERED: SODIUM CHLORIDE 0.9% 1,000 ML IV PRN (09:32)
[2018-01-13] MEDS ORDERED: ALBUMIN 5% 25 GM in PREMIX 1 EACH IV ONE (14:00)
[2018-01-13] MEDS ORDERED: HEPARIN 10,000 UNIT/10 ML VIAL IV SCH (14:00)
[2018-01-13] MEDS ORDERED: VANCOMYCIN INJ 750 MG in SODIUM CHLORIDE 0.9% 250 ML IV ONE (18:00)
[2018-01-13] MEDS: MULTIVITAMIN IV SCH (18:14)
[2018-01-13] MEDS: AMINO ACIDS IV SCH (18:14)
[2018-01-13] MEDS: LYTE IV SCH (18:14)
[2018-01-13] MEDS: DEXT IV SCH (18:14)
[2018-01-14] MEDS: ALBUTEROL/IPRATROPIUM 3 ML NEB RESP TX SCH ×4 (00:13→20:52)
[2018-01-14] MEDS: PROPOFOL 1,000 MG/100 ML BOTTLE IV SCH ×4 (02:01→23:30)
[2018-01-14 04:19] LABS: ABG Base Excess -2.9 MMOL/L (-2.5-2.5); ABG HCO3 21.5 MMOL/L (20-26); ABG Oxygen Saturation 93.1 % (95-100); ABG PCO2 35.6 MM HG (35-48); ABG PH 7.398 (7.35-7.45); ABG PO2 74.4 MM HG (80-95); ABG TCO2 22.6 MMOL/L (23-27)
[2018-01-14 04:30] LABS: Basophils # 0.1 10*3/uL (0.0-0.2); Basophils % 0.2 % (0.0-0.8); Hematocrit 25.9 VOL% (42.0-52.0); Hemoglobin 9.4 GM/DL (14.0-18.0); Immature Granulocytes % 2.5 %; Immature Granulocytes Absolute 0.56 #; Lymphocytes # 0.4 10*3/uL (1.4-4.0); Lymphocytes % 1.7 % (21.2-54.2); Mean Corpuscular HGB Conc 36.3 GM/DL (32-36); Mean Corpuscular Hemoglobin 32 PG (27-34); Mean Platelet Volume 12.6 FL (9.6-12.0); Monocytes # 0.5 10*3/uL (0.11-0.8); Monocytes % 2.3 % (1.7-12.7); NRBC # 0.26 10*3/uL; Neutrophils # 20.8 10*3/uL (1.4-7.4); Neutrophils % 93.3 % (38.7-73.9); Red Blood Count 2.91 MC/CUMM (3.8-5.5); Red Cell Distribution Width 18.3 % (9.3-17.3); White Blood Count 22.3 T/CUMM (4-12)
[2018-01-14 04:31] LABS: Platelet Count 90 T/CUMM (130-400)
[2018-01-14 04:38] LABS: Calcium 7.6 MG/DL (8.5-10.1); Osmolality,Calculated 293.8 MOS/KG (273-304); Potassium 5.1 MMOL/L (3.5-5.1)
[2018-01-14] MEDS: HYDROCORTISONE 100 MG VIAL IV SCH ×4 (05:08→21:34)
[2018-01-14 05:46] LABS: Band Neutrophils 3 % (0-10); Hypochromasia 1+; Lymphocytes 1 % (20-55); Microcytosis 1+; Nucleated Red Blood Cells 2 (0-5); Polychromasia Slight; Segmented Neutrophils 95 % (50-85); Total Cells Counted 100
[2018-01-14 05:47] LABS: Burr Cells Few; Ovalocytes Slight; Platelet Estimate Decreased; Target Cells Slight
[2018-01-14] MEDS: INSULIN LISPRO 100 UNIT/ML SUBCUT SCH ×3 (06:06→17:45)
[2018-01-14] MEDS: VASOPRESSIN 100 UNITS in SODIUM CHLORIDE 0.9% 95 ML IV SCH (06:06)
[2018-01-14] MEDS: AMIODARONE INJ 450 MG in DEXTROSE 5% 241 ML IV SCH (06:07)
[2018-01-14] MEDS: PANTOPRAZOLE 40 MG VIAL IV SCH (08:52)
[2018-01-14] MEDS: SODIUM HYPOCHLORITE 0.25% IRRIG 473 ML BOTTLE TOP SCH (08:56)
[2018-01-14] MEDS: NOREPINEPHRINE 16 MG in SODIUM CHLORIDE 0.9% 234 ML IV SCH ×2 (17:39→19:21)
[2018-01-14] MEDS: LYTE IV SCH (17:47)
[2018-01-14] MEDS: AMINO ACIDS IV SCH (17:47)
[2018-01-14] MEDS: DEXT IV SCH (17:47)
[2018-01-14] MEDS: MULTIVITAMIN IV SCH (17:47)
[2018-01-14] MEDS: AMIODARONE 200 MG TABLET PO SCH (21:34)
[2018-01-15] MEDS: INSULIN LISPRO 100 UNIT/ML SUBCUT SCH ×4 (00:26→18:18)
[2018-01-15] MEDS: PHENYLEPHRINE INJ 160 MG in SODIUM CHLORIDE 0.9% 234 ML IV SCH (00:27)
[2018-01-15] MEDS: PROPOFOL 1,000 MG/100 ML BOTTLE IV SCH ×5 (01:00→22:00)
[2018-01-15] MEDS: ALBUTEROL/IPRATROPIUM 3 ML NEB RESP TX SCH ×4 (01:37→20:17)
[2018-01-15] MEDS: HYDROCORTISONE 100 MG VIAL IV SCH ×4 (02:43→21:07)
[2018-01-15 04:15] LABS: ABG Base Excess -4.3 MMOL/L (-2.5-2.5); ABG HCO3 21.4 MMOL/L (20-26); ABG PCO2 41.9 MM HG (35-48); ABG PH 7.326 (7.35-7.45); ABG PO2 91.5 MM HG (80-95); ABG TCO2 22.7 MMOL/L (23-27)
[2018-01-15 04:36] LABS: Basophils # 0.1 10*3/uL (0.0-0.2); Basophils % 0.2 % (0.0-0.8); Hematocrit 25.9 VOL% (42.0-52.0); Hemoglobin 9.4 GM/DL (14.0-18.0); Immature Granulocytes % 2.1 %; Immature Granulocytes Absolute 0.57 #; Lymphocytes # 0.2 10*3/uL (1.4-4.0); Lymphocytes % 0.9 % (21.2-54.2); Mean Corpuscular HGB Conc 36.3 GM/DL (32-36); Mean Corpuscular Hemoglobin 33 PG (27-34); Mean Corpuscular Volume 89.6 FL (87-102); Mean Platelet Volume 12.3 FL (9.6-12.0); Monocytes # 0.4 10*3/uL (0.11-0.8); Monocytes % 1.5 % (1.7-12.7); NRBC # 0.16 10*3/uL; Neutrophils # 25.3 10*3/uL (1.4-7.4); Neutrophils % 95.3 % (38.7-73.9); Platelet Count 103 T/CUMM (130-400); Red Blood Count 2.89 MC/CUMM (3.8-5.5); Red Cell Distribution Width 20.4 % (9.3-17.3); White Blood Count 26.6 T/CUMM (4-12)
[2018-01-15 05:06] LABS: Calcium 7.5 MG/DL (8.5-10.1); Osmolality,Calculated 281.5 MOS/KG (273-304); Potassium 3.1 MMOL/L (3.5-5.1)
[2018-01-15 05:08] LABS: Band Neutrophils 5 % (0-10); Elliptocytes Few; Giant Platelets Few; Hypochromasia 1+; Nucleated Red Blood Cells 1 (0-5); Platelet Estimate Decreased; Segmented Neutrophils 93 % (50-85); Total Cells Counted 100
[2018-01-15 05:09] LABS: Burr Cells Slight; Macrocytosis Slight; Polychromasia Slight
[2018-01-15] MEDS: VASOPRESSIN 100 UNITS in SODIUM CHLORIDE 0.9% 95 ML IV SCH (06:12)
[2018-01-15] MEDS: PANTOPRAZOLE 40 MG VIAL IV SCH (09:15)
[2018-01-15] MEDS: AMIODARONE 200 MG TABLET PO SCH ×2 (09:18→21:08)
[2018-01-15] MEDS: SODIUM HYPOCHLORITE 0.25% IRRIG 473 ML BOTTLE TOP SCH (09:19)
[2018-01-15] MEDS: NOREPINEPHRINE 16 MG in SODIUM CHLORIDE 0.9% 234 ML IV SCH ×3 (09:23→23:05)
[2018-01-15] MEDS: ASCORBIC ACID 500 MG TABLET PO SCH ×2 (09:44→21:07)
[2018-01-15 11:41] LABS: ABG HCO3 19.1 MMOL/L (20-26); ABG Oxygen Saturation 91.9 % (95-100); ABG PCO2 31.9 MM HG (35-48); ABG PH 7.395 (7.35-7.45); ABG PO2 70.4 MM HG (80-95); ABG TCO2 20.1 MMOL/L (23-27)
[2018-01-15] MEDS ORDERED: POTASSIUM CHLORIDE RIDER 20 MEQ in PREMIX 1 EACH IV ONE (12:35)
[2018-01-15] MEDS: MULTIVITAMIN IV SCH (17:04)
[2018-01-15] MEDS: AMINO ACIDS IV SCH (17:04)
[2018-01-15] MEDS: LYTE IV SCH (17:04)
[2018-01-15] MEDS: DEXT IV SCH (17:04)
[2018-01-16] MEDS: ALBUTEROL/IPRATROPIUM 3 ML NEB RESP TX SCH ×3 (00:23→13:24)
[2018-01-16] MEDS: PROPOFOL 1,000 MG/100 ML BOTTLE IV SCH (00:51)
[2018-01-16] MEDS: PHENYLEPHRINE INJ 160 MG in SODIUM CHLORIDE 0.9% 234 ML IV SCH ×2 (00:51→05:43)
[2018-01-16] MEDS: INSULIN LISPRO 100 UNIT/ML SUBCUT SCH ×3 (00:52→15:21)
[2018-01-16] MEDS: HYDROCORTISONE 100 MG VIAL IV SCH ×3 (03:59→17:39)
[2018-01-16 04:48] LABS: ABG Base Excess -10.9 MMOL/L (-2.5-2.5); ABG HCO3 15.7 MMOL/L (20-26); ABG Oxygen Saturation 89.8 % (95-100); ABG PO2 78.8 MM HG (80-95); ABG TCO2 17.9 MMOL/L (23-27)
[2018-01-16 04:51] LABS: ABG PH 7.124 (7.35-7.45)
[2018-01-16 04:56] LABS: Basophils # 0.1 10*3/uL (0.0-0.2); Basophils % 0.5 % (0.0-0.8); Hematocrit 26.8 VOL% (42.0-52.0); Hemoglobin 9.3 GM/DL (14.0-18.0); Immature Granulocytes % 0.6 %; Immature Granulocytes Absolute 0.06 #; Lymphocytes # 0.1 10*3/uL (1.4-4.0); Lymphocytes % 1.1 % (21.2-54.2); Mean Corpuscular HGB Conc 34.7 GM/DL (32-36); Mean Corpuscular Hemoglobin 32 PG (27-34); Mean Corpuscular Volume 93.4 FL (87-102); Mean Platelet Volume 12.4 FL (9.6-12.0); Monocytes # 0.3 10*3/uL (0.11-0.8); Monocytes % 2.8 % (1.7-12.7); NRBC # 0.33 10*3/uL; Neutrophils # 9.7 10*3/uL (1.4-7.4); Platelet Count 120 T/CUMM (130-400); Red Blood Count 2.87 MC/CUMM (3.8-5.5); Red Cell Distribution Width 21.9 % (9.3-17.3); White Blood Count 10.2 T/CUMM (4-12)
[2018-01-16] MEDS ORDERED: SODIUM BICARBONATE 50 MEQ/50 ML SYRINGE IV ONE (05:30)
[2018-01-16 05:42] LABS: Calcium 7.1 MG/DL (8.5-10.1)
[2018-01-16 05:44] LABS: Band Neutrophils 19 % (0-10); Burr Cells Slight; Giant Platelets Few; Hypochromasia 1+; Lymphocytes 2 % (20-55); Nucleated Red Blood Cells 3 (0-5); Ovalocytes Slight; Platelet Estimate Normal; Segmented Neutrophils 75 % (50-85); Total Cells Counted 100
[2018-01-16 05:45] LABS: Macrocytosis Slight; Polychromasia Slight
[2018-01-16 05:49] LABS: Potassium 7.4 MMOL/L (3.5-5.1)
[2018-01-16 05:55] LABS: Osmolality,Calculated 305.2 MOS/KG (273-304)
[2018-01-16] MEDS: VASOPRESSIN 100 UNITS in SODIUM CHLORIDE 0.9% 95 ML IV SCH ×2 (07:12→08:07)
[2018-01-16] MEDS ORDERED: SODIUM BICARB INJ 150 MEQ in DEXTROSE 5% 850 ML IV SCH (08:00)
[2018-01-16] MEDS: NOREPINEPHRINE 16 MG in SODIUM CHLORIDE 0.9% 234 ML IV SCH ×3 (08:01→17:40)
[2018-01-16] MEDS ORDERED: CALCIUM CHLORIDE 1,000 MG/10 ML SYRINGE IV ONE ×2 (08:11→08:30)
[2018-01-16] MEDS ORDERED: CEFTAROLINE 200 MG in SODIUM CHLORIDE 0.9% 100 ML IV SCH (09:00)
[2018-01-16] MEDS: PANTOPRAZOLE 40 MG VIAL IV SCH (09:05)
[2018-01-16] MEDS: ASCORBIC ACID 500 MG TABLET PO SCH (09:09)
[2018-01-16] MEDS: AMIODARONE 200 MG TABLET PO SCH (09:10)
[2018-01-16] MEDS: SODIUM HYPOCHLORITE 0.25% IRRIG 473 ML BOTTLE TOP SCH (09:14)
[2018-01-16] MEDS: DEXTROSE 50% 25 GM/50 ML VIAL IV PRN (12:20)
[2018-01-16] MEDS ORDERED: MORPHINE 2 MG/1 ML SYRINGE IV PRN (16:57)
[2018-01-16] MEDS ORDERED: PHENYLEPHRINE DRIP 40 MG/250 ML PREMIX IV ONE (20:36)
[2018-01-16 21:46] VITALS: BP 41/22
[2018-01-16] MEDS ORDERED: VASOPRESSIN 100 UNITS in SODIUM CHLORIDE 0.9% 95 ML IV SCH (22:00)
[2018-01-16] MEDS ORDERED: NOREPINEPHRINE 8 MG in SODIUM CHLORIDE 0.9% 242 ML IV SCH (22:00)
[2018-01-16] MEDS ORDERED: PHENYLEPHRINE DRIP 40 MG/250 ML PREMIX IV SCH (22:00)
== END 2018-01-16 21:59 | disposition expired | DRG 252 ==
LOC: N.ED 08:03 → N.EDINP 09:58 → SUPCPDRO 09:58 → N.EDINP 14:25 → N.CC 14:28
PROVIDERS: ADMIT Hospitalist; ATTEND Hospitalist